=== PATIENT | male | born 1960 | race African-American/Black ===

== ENCOUNTER 2016-11-14 19:47 | Inpatient (IN) | payer MEDICAID ==
[~2016-11-14] VITALS: Ht 175.3 cm; Wt 135.2 kg
[~2016-11-14 19:47] MED LIST: ASPI-1159 PO; ASPI-1160 PO; ATOR20TA65 PO; COR3 PO; DOCU-138 PO; LOSA50TA3 PO
[2016-11-14 21:27] LABS: BASOPHILS % 2.3 % (0.0-2.0); EOSINOPHILS % 6.9 % (0.0-5.0); HEMATOCRIT. 43.7 % (42.0-52.0); HEMOGLOBIN. 14.9 g/dL (14.0-18.0); MEAN CORPUSCULAR VOLUME 85.1 fL (80.0-94.0); MEAN PLATELET VOLUME 8.3 fl (7.4-10.4); MONOCYTES % 8.6 % (2.0-8.0); NEUTROPHILS % 43.2 % (40.0-76.0); PLATELET 211 x1000/uL (130-400); RED BLOOD CELL COUNT 5.13 mill/uL (4.7-6.1); RED CELL DISTRIBUTION WIDTH 15.5 % (11.6-14.6)
[2016-11-14 21:34] LABS: INR 1.1; PROTHROMBIN TIME 11.2 sec
[2016-11-14 21:36] LABS: CARBON DIOXIDE 27 mEq/L (21-32); CHLORIDE 106 mEq/L (98-107)
[2016-11-14 21:41] LABS: TROPONIN I 0.04 ng/mL (0.00-0.04)
[2016-11-14] MEDS ORDERED: IPRATROPIUM/ALBUTEROL 0.5-3(2.5)MG/3ML NEB INH PRN (22:00)
[2016-11-14] MEDS ORDERED: ACETAMINOPHEN 325MG TABLET PO PRN (22:00)
[2016-11-14] MEDS ORDERED: ONDANSETRON HCL 4MG/2ML VIAL IV PRN (22:00)
[2016-11-14] MEDS ORDERED: CLONIDINE 0.1MG TABLET PO PRN (22:00)
[2016-11-14] MEDS ORDERED: MAGNESIUM/ALUMINUM HYDROXIDE/SIMETHICONE 30ML UDC PO PRN (22:00)
[2016-11-14 22:46] LABS: CLARITY URINE CLEAR (CLEAR); COLOR URINE YELLOW (YELLOW); GLUCOSE URINE NEGATIVE (NEGATIVE); KETONES URINE TRACE (NEGATIVE); LEUKOCYTE ESTERASE URINE NEGATIVE (NEGATIVE); NITRITE URINE NEGATIVE (NEGATIVE); OCCULT BLOOD URINE NEGATIVE (NEGATIVE); PROTEIN URINE NEGATIVE (NEGATIVE); SPECIFIC GRAVITY URINE 1.035 (1.005-1.030)
[2016-11-14] MEDS: HYDROCODONE/ACETAMINOPHEN 5/325MG TABLET PO PRN (22:59)
[2016-11-14 23:14] LABS: CHLORIDE 105 mEq/L (98-107)
[2016-11-14 23:16] LABS: CARBON DIOXIDE 26 mEq/L (21-32)
[2016-11-14 23:20] LABS: *AMPHETAMINES SCREEN URINE NEGATIVE (NEGATIVE); *BARBITURATES SCREEN URINE NEGATIVE (NEGATIVE); *BENZODIAZEPINES SCREEN URINE NEGATIVE (NEGATIVE); *COCAINE SCREEN URINE NEGATIVE (NEGATIVE); CANNABINOID URINE SCREEN NEGATIVE (NEGATIVE); METHADONE URINE SCREEN NEGATIVE (NEGATIVE); OPIATES URINE SCREEN NEGATIVE (NEGATIVE); PHENCYCLIDINE URINE SCREEN NEGATIVE (NEGATIVE)
[2016-11-14 23:25] LABS: CREATINE KINASE 269 IU/L (39-308)
[2016-11-14 23:30] VITALS: BP 113/78
[2016-11-15] VITALS: BP 113/78
[2016-11-15 04:00] VITALS: BP 127/74
[2016-11-15 06:07] LABS: CREATINE KINASE MB FRACTION 0.8 ng/mL (0.5-3.6)
[2016-11-15] MEDS ORDERED: PNEUMOCOCCAL 23-VAL P-SAC VAC 0.5 ML IM ONE (06:30)
[2016-11-15] MEDS: HYDROCODONE/ACETAMINOPHEN 5/325MG TABLET PO PRN ×2 (06:42→17:17)
[2016-11-15 08:00] VITALS: BP 112/73
[2016-11-15] MEDS: CARVEDILOL 3.125 MG TABLET PO SCH ×2 (08:46→17:15)
[2016-11-15] MEDS: LOSARTAN POTASSIUM 50 MG TABLET PO SCH (08:54)
[2016-11-15] MEDS: ENOXAPARIN 40MG/0.4ML SYR SUBCUT SCH ×2 (08:54→20:51)
[2016-11-15] MEDS: DOCUSATE SODIUM 100MG CAPSULE PO SCH (08:54)
[2016-11-15] MEDS: ASPIRIN 81MG EC TABLET PO SCH (08:54)
[2016-11-15] MEDS: ATORVASTATIN CALCIUM 20MG TABLET PO SCH (08:54)
[2016-11-15] MEDS ORDERED: ASPIRIN 81MG EC TABLET PO SCH (09:00)
[2016-11-15 12:00] VITALS: BP 109/71
[2016-11-15 16:00] VITALS: BP 116/72
[2016-11-15 20:37] VITALS: BP 100/63
[2016-11-16 00:01] VITALS: BP 115/78
[2016-11-16 04:31] VITALS: BP 94/58
[2016-11-16 08:00] VITALS: BP 134/87
[2016-11-16] MEDS: ENOXAPARIN 40MG/0.4ML SYR SUBCUT SCH (09:47)
[2016-11-16] MEDS: ASPIRIN 81MG EC TABLET PO SCH (09:47)
[2016-11-16] MEDS: DOCUSATE SODIUM 100MG CAPSULE PO SCH (09:47)
[2016-11-16] MEDS: ATORVASTATIN CALCIUM 20MG TABLET PO SCH (09:48)
[2016-11-16] MEDS: CARVEDILOL 3.125 MG TABLET PO SCH ×2 (09:48→17:53)
[2016-11-16] MEDS: LOSARTAN POTASSIUM 50 MG TABLET PO SCH (09:49)
[2016-11-16] MEDS: HYDROCODONE/ACETAMINOPHEN 5/325MG TABLET PO PRN (09:50)
[2016-11-16 12:00] VITALS: BP 100/52
[2016-11-16 16:00] VITALS: BP 129/75
== END 2016-11-16 18:00 | DRG 203 ==
LOC: ER 20:19 → 5WST 21:59 → ENRESERV 22:16
PROVIDERS: ADMIT Internal Medicine; ATTEND Internal Medicine
DX: M94.0 Chondrocostal junction syndrome [Tietze] (principal); I11.9 Hypertensive heart disease without heart failure; I24.9 Acute ischemic heart disease, unspecified; Z68.41 Body mass index [BMI] 40.0-44.9, adult; E66.01 Morbid (severe) obesity due to excess calories; E78.5 Hyperlipidemia, unspecified; I25.10 Atherosclerotic heart disease of native coronary artery without angina pectoris; J44.9 Chronic obstructive pulmonary disease, unspecified; Z79.899 Other long term (current) drug therapy; I25.2 Old myocardial infarction; Z82.49 Family history of ischemic heart disease and other diseases of the circulatory system; Z95.1 Presence of aortocoronary bypass graft; Z79.82 Long term (current) use of aspirin
CPT/HCPCS: 36415; 71010; 80048; 80061; 80305; 81003; 82550; 82553; 83735; 83880; 84443; 84484; 85025; 85610; 90732; 93005; 93306; 93970; 97161; 99285; J1650

== ENCOUNTER 2017-03-03 20:02 | Inpatient (IN) | payer MEDICAID ==
[~2017-03-03] VITALS: Ht 172.7 cm; Wt 127.0 kg
[~2017-03-03 20:02] MED LIST changes: -ASPI-1159 PO
[2017-03-03] MEDS ORDERED: ASPIRIN 81MG TABLET PO ONE (20:45)
[2017-03-03] MEDS ORDERED: NITROGLYCERIN 0.4MG TABLET SL SL PRN (20:45)
[2017-03-03 20:51] LABS: BASOPHILS % 1.2 % (0.0-2.0); EOSINOPHILS % 6.3 % (0.0-5.0); HEMATOCRIT. 42.8 % (42.0-52.0); HEMOGLOBIN. 14.5 g/dL (14.0-18.0); LYMPHOCYTES % 36.5 % (20.0-50.0); MEAN CORPUSCULAR HEMOGLOBIN 29.2 pg (28.0-32.0); MEAN CORPUSCULAR VOLUME 86.4 fL (80.0-94.0); MEAN PLATELET VOLUME 8.4 fl (7.4-10.4); MONOCYTES % 7.9 % (2.0-8.0); NEUTROPHILS % 48.1 % (40.0-76.0); PLATELET 195 x1000/uL (130-400); RED BLOOD CELL COUNT 4.95 mill/uL (4.7-6.1)
[2017-03-03 20:57] LABS: INR 1.1; PROTHROMBIN TIME 11.3 sec (9.4-11.6)
[2017-03-03 21:07] LABS: CARBON DIOXIDE 25 mEq/L (21-32); CHLORIDE 107 mEq/L (98-107); TROPONIN I 0.05 ng/mL (0.00-0.04)
[2017-03-03 23:10] VITALS: BP 127/63
[2017-03-04] VITALS: BP 127/63
[2017-03-04] MEDS ORDERED: INFLUENZA VIRUS VACCINE 0.5ML SYR IM ONE (01:00)
[2017-03-04 04:00] VITALS: BP 115/72
[2017-03-04 07:04] LABS: EOSINOPHILS % 6.3 % (0.0-5.0); HEMATOCRIT. 42.8 % (42.0-52.0); HEMOGLOBIN. 14.5 g/dL (14.0-18.0); LYMPHOCYTES % 36.2 % (20.0-50.0); MEAN CORPUSCULAR HEMOGLOBIN 29.3 pg (28.0-32.0); MEAN CORPUSCULAR VOLUME 86.6 fL (80.0-94.0); MEAN PLATELET VOLUME 9.1 fl (7.4-10.4); MONOCYTES % 10.7 % (2.0-8.0); NEUTROPHILS % 45.8 % (40.0-76.0); PLATELET 184 x1000/uL (130-400); RED BLOOD CELL COUNT 4.95 mill/uL (4.7-6.1); RED CELL DISTRIBUTION WIDTH 15.7 % (11.6-14.6)
[2017-03-04 07:24] LABS: CARBON DIOXIDE 26 mEq/L (21-32); CHLORIDE 105 mEq/L (98-107); HDL CHOLESTEROL 32 mg/dL (40-59); LDL CHOLESTEROL 86 mg/dL (5-100)
[2017-03-04 07:57] LABS: CREATINE KINASE MB FRACTION 0.9 ng/mL (0.5-3.6); TROPONIN I 0.04 ng/mL (0.00-0.04)
[2017-03-04 08:00] VITALS: BP 124/75
[2017-03-04] MEDS: DOCUSATE SODIUM 100MG CAPSULE PO SCH (08:02)
[2017-03-04] MEDS: ASPIRIN 81MG TABLET PO SCH (08:03)
[2017-03-04] MEDS: LOSARTAN POTASSIUM 50 MG TABLET PO SCH (08:04)
[2017-03-04] MEDS: CARVEDILOL 3.125 MG TABLET PO SCH ×2 (08:04→20:18)
[2017-03-04] MEDS: HYDROCODONE/ACETAMINOPHEN 5/325MG TABLET PO PRN ×4 (08:05→20:45)
[2017-03-04] MEDS ORDERED: ENOXAPARIN 30MG/0.3ML SYR SUBCUT SCH (09:00)
[2017-03-04] MEDS ORDERED: ENOXAPARIN 40MG/0.4ML SYR SUBCUT SCH (09:00)
[2017-03-04 12:00] VITALS: BP 101/50
[2017-03-04 16:00] VITALS: BP 97/52
[2017-03-04 16:22] LABS: CREATINE KINASE MB FRACTION 1.1 ng/mL (0.5-3.6); TROPONIN I 0.05 ng/mL (0.00-0.04)
[2017-03-04] MEDS ORDERED: FUROSEMIDE 40MG/4ML VIAL IVP NR (17:50)
[2017-03-04 20:00] VITALS: BP 116/76
[2017-03-04] MEDS: ENOXAPARIN 30MG/0.3ML SYR SUBCUT SCH (20:21)
[2017-03-04] MEDS ORDERED: ATORVASTATIN CALCIUM 20MG TABLET PO SCH (21:00)
[2017-03-04 23:40] LABS: TROPONIN I 0.05 ng/mL (0.00-0.04)
[2017-03-04 23:41] LABS: CREATINE KINASE MB FRACTION 0.7 ng/mL (0.5-3.6)
[2017-03-05] VITALS: BP 110/70
[2017-03-05 04:00] VITALS: BP 102/67
[2017-03-05 08:00] VITALS: BP 132/80
[2017-03-05] MEDS: ASPIRIN 81MG TABLET PO SCH (08:37)
[2017-03-05] MEDS: CARVEDILOL 3.125 MG TABLET PO SCH (08:37)
[2017-03-05] MEDS: DOCUSATE SODIUM 100MG CAPSULE PO SCH (08:37)
[2017-03-05] MEDS: LOSARTAN POTASSIUM 50 MG TABLET PO SCH (08:37)
[2017-03-05] MEDS: ENOXAPARIN 30MG/0.3ML SYR SUBCUT SCH (08:38)
[2017-03-05] MEDS: HYDROCODONE/ACETAMINOPHEN 5/325MG TABLET PO PRN (08:39)
[2017-03-05 12:00] VITALS: BP 119/66
[2017-03-05 13:15] VITALS: BP 119/66
== END 2017-03-05 14:40 | DRG 243 ==
LOC: ER 20:02 → ENRESERV 21:57 → 7WST 23:10
PROVIDERS: ADMIT Internal Medicine; ATTEND Internal Medicine
DX: K21.9 Gastro-esophageal reflux disease without esophagitis (principal); E44.1 Mild protein-calorie malnutrition; I25.10 Atherosclerotic heart disease of native coronary artery without angina pectoris; E66.9 Obesity, unspecified; J44.9 Chronic obstructive pulmonary disease, unspecified; E78.00 Pure hypercholesterolemia, unspecified; Z95.1 Presence of aortocoronary bypass graft; Z68.41 Body mass index [BMI] 40.0-44.9, adult; Z79.82 Long term (current) use of aspirin; Z79.899 Other long term (current) drug therapy
CPT/HCPCS: 36415; 71010; 80048; 80053; 80061; 82550; 82553; 83880; 84484; 85025; 85610; 90686; 93005; 93306; 99285; J1650

== ENCOUNTER 2021-04-16 06:54 | Inpatient (IN) | payer MEDICAID ==
[~2021-04-16] VITALS: Ht 175.3 cm; Wt 134.9 kg
[~2021-04-16 06:54] MED LIST changes: -ASPI-1160 PO; +ASPI-986 MT; -DOCU-138 PO
[2021-04-16] MEDS ORDERED: NITROGLYCERIN 0.4MG TABLET SL SL PRN (08:00)
[2021-04-16] MEDS ORDERED: ASPIRIN 81MG TABLET PO ONE (08:00)
[2021-04-16 08:08] LABS: BASOPHILS % 0.9 % (0.0-2.0); EOSINOPHILS % 4.7 % (0.0-5.0); HEMOGLOBIN. 8.4 g/dL (14.0-18.0); LYMPHOCYTES % 26.4 % (20.0-50.0); MEAN CORPUSCULAR HEMOGLOBIN 30.2 pg (28.0-32.0); MEAN CORPUSCULAR VOLUME 93.2 fL (80.0-94.0); MEAN PLATELET VOLUME 8.4 fl (7.4-10.4); PLATELET 95 x1000/uL (130-400); RED BLOOD CELL COUNT 2.79 mill/uL (4.7-6.1); RED CELL DISTRIBUTION WIDTH 14.7 % (11.6-14.6)
[2021-04-16 08:17] LABS: CHLORIDE 129 mEq/L (98-107)
[2021-04-16] MEDS ORDERED: KCL 10MEQ/50ML PREMIX 50 ML IV STA (09:25)
[2021-04-16] MEDS ORDERED: MAGNESIUM 2 G PREMIX 50 ML IV ONE (09:30)
[2021-04-16] MEDS ORDERED: POTASSIUM CHLORIDE 20MEQ TABLET SR PO ONE (09:30)
[2021-04-16] MEDS ORDERED: LORAZEPAM 2MG/ML CPJ IV PRN (11:30)
[2021-04-16] MEDS ORDERED: HYDROCODONE/ACETAMINOPHEN 5/325MG TABLET PO PRN (11:30)
[2021-04-16] MEDS ORDERED: ACETAMINOPHEN 325MG TABLET PO PRN (11:30)
[2021-04-16] MEDS ORDERED: DOCUSATE SODIUM 100MG CAPSULE PO PRN (11:30)
[2021-04-16] MEDS ORDERED: HYDRALAZINE 20MG/ML VIAL IV PRN (11:30)
[2021-04-16] MEDS ORDERED: CLONIDINE 0.1MG TABLET PO PRN (11:30)
[2021-04-16] MEDS ORDERED: MAGNESIUM/ALUMINUM HYDROXIDE/SIMETHICONE 30ML UDC PO PRN (11:30)
[2021-04-16] MEDS ORDERED: DIPHENHYDRAMINE 50MG/ML VIAL IV PRN (11:30)
[2021-04-16] MEDS ORDERED: ONDANSETRON HCL 4MG/2ML INJ IV PRN (11:30)
[2021-04-16] MEDS ORDERED: NALOXONE HCL 0.4MG/ML VIAL IV PRN (11:30)
[2021-04-16] MEDS ORDERED: IPRATROPIUM/ALBUTEROL 0.5-3(2.5)MG/3ML NEB HHN PRN (11:30)
[2021-04-16] MEDS ORDERED: MORPHINE SULFATE 2 MG/ML CPJ (NOT FOR IM USE) IV PRN (11:30)
[2021-04-16] MEDS ORDERED: GUAIFENESIN 200MG/10ML SUGAR FREE UDC PO PRN (11:30)
[2021-04-16] MEDS ORDERED: CALCIUM GLUCONATE 1000 MG in DEXTROSE 5% WATER 100 ML IV ONE (13:00)
[2021-04-16] MEDS ORDERED: CALCIUM GLUCONATE 100MG/ML 10ML VIAL IV ONE (13:00)
[2021-04-16] MEDS: SODIUM CHLORIDE 0.9% INJ 3ML FLUSH IVF SCH ×2 (14:00→21:02)
[2021-04-16] MEDS: ENOXAPARIN 40MG/0.4ML SYR SUBCUT SCH ×2 (14:04→21:00)
[2021-04-16] MEDS ORDERED: POTASSIUM CHLORIDE 20MEQ TABLET SR PO SCH (14:30)
[2021-04-16] MEDS: LOSARTAN POTASSIUM 25 MG TABLET PO SCH ×2 (14:45→23:30)
[2021-04-16 15:24] LABS: *AMPHETAMINES SCREEN URINE NEGATIVE (NEGATIVE); *BARBITURATES SCREEN URINE NEGATIVE (NEGATIVE); *BENZODIAZEPINES SCREEN URINE NEGATIVE (NEGATIVE); *COCAINE SCREEN URINE PRESUMTIVE POSITIVE (NEGATIVE); CANNABINOID URINE SCREEN NEGATIVE (NEGATIVE)
[2021-04-16 15:25] LABS: METHADONE URINE SCREEN NEGATIVE (NEGATIVE); OPIATES URINE SCREEN NEGATIVE (NEGATIVE); PHENCYCLIDINE URINE SCREEN PRESUMTIVE POSITIVE (NEGATIVE)
[2021-04-16 15:39] LABS: TOTAL IRON BINDING CAPACITY 329 ug/dL (250-450)
[2021-04-16 16:05] LABS: CREATINE KINASE MB FRACTION 1.9 ng/mL (0.5-3.6)
[2021-04-16] MEDS: FUROSEMIDE 40MG/4ML VIAL IVP SCH (18:34)
[2021-04-16] MEDS: NITROGLYCERIN OINT 1GM/INCH UDPKT TD SCH ×2 (18:34→23:30)
[2021-04-16 20:00] VITALS: BP 137/76
[2021-04-17] VITALS: BP 96/39
[2021-04-17 04:00] VITALS: BP 100/59
[2021-04-17 06:10] LABS: CHLORIDE 106 mEq/L (98-107)
[2021-04-17] MEDS: SODIUM CHLORIDE 0.9% INJ 3ML FLUSH IVF SCH ×3 (06:11→23:05)
[2021-04-17] MEDS: NITROGLYCERIN OINT 1GM/INCH UDPKT TD SCH ×2 (06:11→11:42)
[2021-04-17] MEDS: FUROSEMIDE 40MG/4ML VIAL IVP SCH ×2 (06:11→16:49)
[2021-04-17 06:55] LABS: BASOPHILS % 1.3 % (0.0-2.0); EOSINOPHILS % 7.6 % (0.0-5.0); HEMATOCRIT. 51.1 % (42.0-52.0); HEMOGLOBIN. 17.2 g/dL (14.0-18.0); LYMPHOCYTES % 30.4 % (20.0-50.0); MEAN CORPUSCULAR HEMOGLOBIN 30.1 pg (28.0-32.0); MEAN CORPUSCULAR VOLUME 89.2 fL (80.0-94.0); MEAN PLATELET VOLUME 8.6 fl (7.4-10.4); MONOCYTES % 11.1 % (2.0-8.0); NEUTROPHILS % 49.6 % (40.0-76.0); PLATELET 208 x1000/uL (130-400); RED BLOOD CELL COUNT 5.72 mill/uL (4.7-6.1); RED CELL DISTRIBUTION WIDTH 14.7 % (11.6-14.6)
[2021-04-17 08:00] VITALS: BP 124/68
[2021-04-17] MEDS: ENOXAPARIN 40MG/0.4ML SYR SUBCUT SCH (08:48)
[2021-04-17] MEDS: LOSARTAN POTASSIUM 25 MG TABLET PO SCH ×2 (08:48→21:16)
[2021-04-17] MEDS ORDERED: INFLUENZA VACCINE 05/PF 0.5 ML SYRINGE IM ONE (10:00)
[2021-04-17 12:00] VITALS: BP 100/57
[2021-04-17 16:00] VITALS: BP 126/77
[2021-04-17] MEDS: ASPIRIN 81MG EC TABLET PO SCH (16:49)
[2021-04-17 20:00] VITALS: BP 117/74
[2021-04-17] MEDS: ENOXAPARIN 30MG/0.3ML SYR SUBCUT SCH (21:16)
[2021-04-18] VITALS: BP 126/86
[2021-04-18 04:00] VITALS: BP 130/89
[2021-04-18 06:08] LABS: BASOPHILS % 1.1 % (0.0-2.0); EOSINOPHILS % 6.6 % (0.0-5.0); HEMOGLOBIN. 17.6 g/dL (14.0-18.0); LYMPHOCYTES % 32.9 % (20.0-50.0); MEAN CORPUSCULAR HEMOGLOBIN 30.7 pg (28.0-32.0); MEAN CORPUSCULAR VOLUME 90.4 fL (80.0-94.0); MEAN PLATELET VOLUME 9.1 fl (7.4-10.4); MONOCYTES % 13.1 % (2.0-8.0); NEUTROPHILS % 46.3 % (40.0-76.0); PLATELET 201 x1000/uL (130-400); RED BLOOD CELL COUNT 5.75 mill/uL (4.7-6.1); RED CELL DISTRIBUTION WIDTH 14.9 % (11.6-14.6)
[2021-04-18] MEDS: FUROSEMIDE 40MG/4ML VIAL IVP SCH ×2 (06:26→17:31)
[2021-04-18] MEDS: SODIUM CHLORIDE 0.9% INJ 3ML FLUSH IVF SCH ×3 (06:26→22:00)
[2021-04-18 06:35] LABS: CHLORIDE 102 mEq/L (98-107)
[2021-04-18 08:00] VITALS: BP 102/67
[2021-04-18] MEDS: LOSARTAN POTASSIUM 25 MG TABLET PO SCH ×2 (08:51→21:00)
[2021-04-18] MEDS: ASPIRIN 81MG EC TABLET PO SCH (08:51)
[2021-04-18] MEDS: ENOXAPARIN 30MG/0.3ML SYR SUBCUT SCH ×2 (08:51→21:59)
[2021-04-18 12:00] VITALS: BP 92/57
[2021-04-18 16:00] VITALS: BP 106/58
[2021-04-18 20:00] VITALS: BP 105/70
[2021-04-19] VITALS: BP 114/67
[2021-04-19 04:00] VITALS: BP 111/73
[2021-04-19] MEDS: FUROSEMIDE 40MG/4ML VIAL IVP SCH (06:24)
[2021-04-19] MEDS: SODIUM CHLORIDE 0.9% INJ 3ML FLUSH IVF SCH ×3 (06:24→21:34)
[2021-04-19 08:00] VITALS: BP 100/84
[2021-04-19] MEDS: LOSARTAN POTASSIUM 25 MG TABLET PO SCH ×2 (08:24→21:33)
[2021-04-19] MEDS: ASPIRIN 81MG EC TABLET PO SCH (08:25)
[2021-04-19] MEDS: ENOXAPARIN 30MG/0.3ML SYR SUBCUT SCH ×2 (08:25→21:34)
[2021-04-19 12:00] VITALS: BP 136/86
[2021-04-19 16:00] VITALS: BP 138/76
[2021-04-19 20:00] VITALS: BP 148/85
[2021-04-19] MEDS: FUROSEMIDE 40MG TABLET PO SCH (21:33)
[2021-04-20] VITALS: BP 110/56
[2021-04-20 04:00] VITALS: BP 128/85
[2021-04-20] MEDS: SODIUM CHLORIDE 0.9% INJ 3ML FLUSH IVF SCH ×3 (06:24→21:05)
[2021-04-20 08:00] VITALS: BP 113/62
[2021-04-20] MEDS: FUROSEMIDE 40MG TABLET PO SCH ×2 (09:32→21:05)
[2021-04-20] MEDS: ASPIRIN 81MG EC TABLET PO SCH (09:32)
[2021-04-20] MEDS: ENOXAPARIN 30MG/0.3ML SYR SUBCUT SCH ×2 (09:32→21:05)
[2021-04-20] MEDS: LOSARTAN POTASSIUM 25 MG TABLET PO SCH ×2 (09:34→21:05)
[2021-04-20 12:00] VITALS: BP 132/79
[2021-04-20 16:00] VITALS: BP 124/87
[2021-04-20 20:00] VITALS: BP 117/84
[2021-04-21] VITALS: BP 134/67
[2021-04-21 04:00] VITALS: BP 119/82
[2021-04-21] MEDS: SODIUM CHLORIDE 0.9% INJ 3ML FLUSH IVF SCH ×3 (05:36→21:45)
[2021-04-21 08:00] VITALS: BP 119/68
[2021-04-21] MEDS: LOSARTAN POTASSIUM 25 MG TABLET PO SCH ×2 (10:07→21:45)
[2021-04-21] MEDS: FUROSEMIDE 40MG TABLET PO SCH ×2 (10:08→21:45)
[2021-04-21] MEDS: ASPIRIN 81MG EC TABLET PO SCH (10:08)
[2021-04-21] MEDS: ENOXAPARIN 30MG/0.3ML SYR SUBCUT SCH ×2 (10:08→21:45)
[2021-04-21 12:00] VITALS: BP 120/66
[2021-04-21 16:00] VITALS: BP 125/81
[2021-04-21 20:00] VITALS: BP 127/81
[2021-04-22] VITALS: BP 117/65
[2021-04-22 04:00] VITALS: BP 121/67
[2021-04-22] MEDS: SODIUM CHLORIDE 0.9% INJ 3ML FLUSH IVF SCH ×3 (06:00→21:44)
[2021-04-22 08:00] VITALS: BP 119/73
[2021-04-22] MEDS: LOSARTAN POTASSIUM 25 MG TABLET PO SCH ×2 (09:00→21:44)
[2021-04-22] MEDS: ASPIRIN 81MG EC TABLET PO SCH (09:07)
[2021-04-22] MEDS: FUROSEMIDE 40MG TABLET PO SCH ×2 (09:07→21:44)
[2021-04-22] MEDS: ENOXAPARIN 30MG/0.3ML SYR SUBCUT SCH ×2 (09:07→21:44)
[2021-04-22 13:34] VITALS: BP 119/73
[2021-04-22 16:00] VITALS: BP 145/73
[2021-04-22 20:00] VITALS: BP 124/74
[2021-04-23] VITALS: BP 130/80
[2021-04-23 04:00] VITALS: BP 101/74
[2021-04-23] MEDS: SODIUM CHLORIDE 0.9% INJ 3ML FLUSH IVF SCH (04:56)
[2021-04-23 07:23] VITALS: BP 137/82
[2021-04-23] MEDS: FUROSEMIDE 40MG TABLET PO SCH (07:47)
[2021-04-23] MEDS: ASPIRIN 81MG EC TABLET PO SCH (07:47)
[2021-04-23] MEDS: ENOXAPARIN 30MG/0.3ML SYR SUBCUT SCH (07:47)
[2021-04-23] MEDS: LOSARTAN POTASSIUM 25 MG TABLET PO SCH (07:47)
== END 2021-04-23 10:05 | DRG 194 ==
LOC: ER 06:54 → MICUSO 09:32 → EDBEDREQ 09:45 → 7EST 19:05
PROVIDERS: ADMIT Internal Medicine; ATTEND Internal Medicine
DX: I11.0 Hypertensive heart disease with heart failure (principal); E43 Unspecified severe protein-calorie malnutrition; D69.6 Thrombocytopenia, unspecified; E83.51 Hypocalcemia; E87.1 Hypo-osmolality and hyponatremia; Z95.1 Presence of aortocoronary bypass graft; E66.01 Morbid (severe) obesity due to excess calories; E78.00 Pure hypercholesterolemia, unspecified; E78.5 Hyperlipidemia, unspecified; E83.42 Hypomagnesemia; E87.6 Hypokalemia; F14.10 Cocaine abuse, uncomplicated; I25.10 Atherosclerotic heart disease of native coronary artery without angina pectoris; I50.9 Heart failure, unspecified; R26.81 Unsteadiness on feet; J44.9 Chronic obstructive pulmonary disease, unspecified; J98.01 Acute bronchospasm; Z59.00 Homelessness unspecified; I25.2 Old myocardial infarction; Z79.82 Long term (current) use of aspirin; Z79.899 Other long term (current) drug therapy; Z68.41 Body mass index [BMI] 40.0-44.9, adult
CPT/HCPCS: 36415; 71045; 80048; 80053; 80305; 82270; 82550; 82553; 83540; 83550; 83735; 83880; 84132; 84443; 84484; 85025; 85379; 90686; 93005; 93306; 93970; 97162; 97530; 99285; J0610; J1650; J1940; J2270; J3475; J3480; J7060